=== PATIENT | male | born 1965 | race Asian ===

== ENCOUNTER 2019-01-28 07:02 | Emergency (ER) | payer OTHER | END 2019-01-28 08:16 | disposition home or self-care (01) | LOC: JER 07:02 ==

== ENCOUNTER 2019-05-01 03:41 | Emergency (ER) | payer OTHER ==
--- NOTE | 2019-05-01 03:56 | PDOC ---
History of Present Illness - General Chief Complaint: Pain, Acute Stated Complaint: ABDOMINAL PAIN Time Seen by Provider: 05/01/19 03:55 History Source: Patient Exam Limitations: No Limitations - History of Present Illness Initial Comments: 53 year old male with PMH ETOH abuse presented to ED for acute epigastric pain x2 hours, associated with nausea/vomiting. Pt reported he ate a large psicy chicken meal prior to his symptoms developing. Pt reported his pain is constant , sharp/burning, no aggravating or alleviating factors. Pt reported seeing specks of blood in vomit, but no overwhelming red color, reported yellow vomit. Pt denied diarrhea, fever, chest pain, shortness of breath. Allergies: NKDA ROS General: denied fever, chills, generalized weakness. HEENT: denied sore throat, rhinorrhea, ear pain. Cardiovascular: denied chest pain, palpitations, syncope, diaphoresis. Respiratory: denied shortness of breath, cough, sputum production, hemoptysis. Gastrointestinal: admitted to abdominal pain, nausea, vomiting. denied diarrhea , constipation, blood in stool. Genitourinary: denied dysuria, increased urinary frequency, hematuria, urinary incontinence, flank pain. Back: denied back pain. Musculoskeletal: denied joint pain, muscle pain, joint swelling. Neurological: denied headache, dizziness, numbness, tingling, weakness. Integumentary: denied rash, laceration, abrasion. Hematologic/Lymphatic: denied bruising or bleeding. PE Constitutional: Well-nourished, Well-developed, appearing stated age. actively vomiting. HEENT: head is normocephalic, atraumatic. EOMI. PERRLA. Neck: supple. Full ROM. Cardiovascular: regular heart rhythm. no murmurs. no pericardial friction rub. Respiratory: clear to auscultation bilaterally. no crackles, rhonchi or wheezing. no stridor. Gastrointestinal: soft. epigastric tenderness to palpation. pena negative. mcburney nontender. normal bowel sounds. no rebound, guarding, masses. Extremities: peripheral pulses intact. no lower extremity edema. Neurological: CN 2-12 grossly intact. moves all four extremities. Psych: awake, alert, oriented x3. follows commands. answers questions appropriately. Past History - Past Medical History Allergies/Adverse Reactions: Allergies Allergy/AdvReac Type Severity Reaction Status Date / Time No Known Allergies Allergy Verified 05/01/19 03:54 Home Medications: Ambulatory Orders Cephalexin Monohydrate [Keflex -] 500 mg PO BID #14 capsule 01/28/19 Sulfamethoxazole/Trimethoprim [Bactrim Ds -] 1 tab PO BID #14 tablet 01/28/19 Ranitidine HCl [Zantac 75] 75 mg PO BID #14 tablet 05/01/19 CVA: No COPD: No - Immunization History Immunization Up to Date: No - Suicide/Smoking/Psychosocial Hx Smoking History: Current every day smoker Have you smoked in the past 12 months: Yes Number of Cigarettes Smoked Daily: 20 Hx Alcohol Use: No Drug/Substance Use Hx: No ED Treatment Course - LABORATORY CBC & Chemistry Diagram: 05/01/19 04:14 05/01/19 04:20 Medical Decision Making - Medical Decision Making 53 year old male with above PMH presented to ED for epigastric pain associated with nausea/vomiting x2 hours after ingesting a spicy meal. Initial Vital Signs Temp Pulse Resp BP Pulse Ox 97.9 F 70 18 167/88 100 05/01/19 03:55 05/01/19 03:55 05/01/19 03:55 05/01/19 03:55 05/01/19 03:55 Afebrile. No tachycardia. No tachypnea. Hypertensive. No hypoxia on room air. Labs ordered: CBC, CMP, lipase, alcohol level Imaging ordered: Flat & Upright Abdominal XR Medications ordered: protonix 40 mg IV once, normal saline bolus 1000 cc once, zofran 4 mg IV once 05/01/19 04:51 CBC WBC 8.3 K/mm3 (4.0-10.0) 05/01/19 04:14 RBC 5.08 M/mm3 (4.00-5.60) 05/01/19 04:14 Hgb 15.7 GM/dL (11.7-16.9) 05/01/19 04:14 Hct 47.2 % (35.4-49) 05/01/19 04:14 MCV 92.9 fl (80-96) 05/01/19 04:14 MCH 30.9 pg (25.7-33.7) 05/01/19 04:14 MCHC 33.3 g/dl (32.0-35.9) 05/01/19 04:14 RDW 13.8 % (11.9-15.9) 05/01/19 04:14 Plt Count 186 K/MM3 (134-434) 05/01/19 04:14 MPV 10.3 fl (7.5-11.1) 05/01/19 04:14 Absolute Neuts (auto) 4.3 K/mm3 (1.5-8.0) 05/01/19 04:14 Neutrophils % 52.1 % (42.8-82.8) 05/01/19 04:14 Lymphocytes % 31.1 % (8-40) 05/01/19 04:14 Monocytes % 8.8 % (3.8-10.2) 05/01/19 04:14 Eosinophils % 6.6 % (0-4.5) H 05/01/19 04:14 Basophils % 1.4 % (0-2.0) 05/01/19 04:14 Nucleated RBC % 0 % (0-0) 05/01/19 04:14 No leukocytosis. No anemia. 05/01/19 05:14 CMP Sodium 142 mmol/L (136-145) 05/01/19 04:20 Potassium 4.1 mmol/L (3.5-5.1) 05/01/19 04:20 Chloride 104 mmol/L (98-107) 05/01/19 04:20 Carbon Dioxide 28 mmol/L (21-32) 05/01/19 04:20 Anion Gap 10 MMOL/L (8-16) 05/01/19 04:20 BUN 16.6 mg/dL (7-18) 05/01/19 04:20 Creatinine 0.9 mg/dL (0.55-1.3) 05/01/19 04:20 Est GFR (CKD-EPI)AfAm 112.62 05/01/19 04:20 Est GFR (CKD-EPI)NonAf 97.17 05/01/19 04:20 Random Glucose 93 mg/dL (74-106) 05/01/19 04:20 Calcium 9.2 mg/dL (8.5-10.1) 05/01/19 04:20 Total Bilirubin 0.3 mg/dL (0.2-1) 05/01/19 04:20 AST 34 U/L (15-37) 05/01/19 04:20 ALT 45 U/L (13-61) 05/01/19 04:20 Alkaline Phosphatase 98 U/L (45-117) 05/01/19 04:20 Total Protein 7.2 g/dl (6.4-8.2) 05/01/19 04:20 Albumin 4.1 g/dl (3.4-5.0) 05/01/19 04:20 Lipase 156 U/L (73-393) 05/01/19 04:20 No electrolyte abnormalities. No NAVEED. No transaminitis. Lipase wnl. Pt reassessed, reported improvement of symptoms, requesting discharge. XR showed no free air under diaphragm. -Pending official report Dispo: Discharged. *DC/Admit/Observation/Transfer Diagnosis at time of Disposition: Gastritis, Epigastric pain, Alcohol use - Discharge Dispostion Disposition: HOME Condition at time of disposition: Improved Decision to Admit order: No - Prescriptions Prescriptions: Ranitidine HCl [Zantac 75] 75 mg PO BID #14 tablet - Referrals Referrals: Harpreet Scales MD [Primary Care Provider] - Abdifatah Elizondo DO [Staff Physician] - Brian Haro MD [Staff Physician] - - Patient Instructions Printed Discharge Instructions: DI for Gastritis, DI for Alcohol Abuse, GERD Diet Additional Instructions: Take all prescriptions as prescribed on label. Follow up with your primary care doctor within 3 days. Your care is not complete until you follow up. Bring all paperwork you were given today to your appointment. Bring all medication bottles you are taking. Follow up with a grain grader within 3 days. Your care is not complete until you follow up. Bring all paperwork you were given today to your appointment. Bring all medication bottles you are taking. I have provided you with referrals. Avoid foods that irritate your stomach - caffeine, coffee, tea, spicy, friend, tomatoes, chocolate. I have included information in your discharge paperwork on the GERD diet. Avoid eating 2 hours prior to bed. Please discuss your alcohol intake with your primary care doctor. Return to the Emergency Department for increasing pain, chest pain, shortness of breath, vomiting blood, dark/tarry stools, lightheadedness, blood in stool, or any other new, worsening or concerning symptoms. - Post Discharge Activity Forms/Work/School Notes: Back to Work
[2019-05-01 03:57] VITALS: TEMP 97.9; BMI 26.9
[2019-05-01] MEDS ORDERED: ONDANSETRON 4 MG/2 ML VIAL IVPUSH ONE (04:08)
[2019-05-01] MEDS ORDERED: SODIUM CHLORIDE 1,000 ML IV STA (04:08)
[2019-05-01] MEDS ORDERED: FAMOTIDINE 20 MG/50 ML IVPB 20 MG/50 ML MG IVPB ONE (04:08)
[2019-05-01] MEDS ORDERED: PANTOPRAZOLE SODIUM 40 MG VIAL IVPUSH ONE (04:09)
--- NOTE | 2019-05-01 04:20 | PDOC ---
Attending Attestation - Resident Resident Name: Elena Moeller - ED Attending Attestation I have performed the following: I have examined & evaluated the patient, The case was reviewed & discussed with the resident, I agree w/resident's findings & plan - HPI HPI: 05/01/19 05:56 Pt ate spicy food and had upset stomach. He is an alcohol drinker. - Physicial Exam PE: 05/01/19 05:57 Normal exam. Pt has gassy abd pain and some mild diffuse tenderness. Agree with resident exam. Afebrile. - Medical Decision Making 05/01/19 05:27 Abd flat and upright no sign of obstruction and no free air. Labs normal; alc is negative Pt feels better; he has gastritis and gas 05/01/19 05:57 Follow with PMD/GI specialist
[2019-05-01] MEDS ORDERED: ONDANSETRON 4 MG/2 ML VIAL ONE (04:21)
[2019-05-01] MEDS ORDERED: PANTOPRAZOLE SODIUM 40 MG VIAL ONE (04:21)
[2019-05-01 04:44] LABS: BASO % 1.4 % (0-2.0); EOS % 6.6 % (0-4.5); HEMATOCRIT 47.2 % (35.4-49); HEMOGLOBIN 15.7 GM/dL (11.7-16.9); LYMPH % 31.1 % (8-40); MCH 30.9 pg (25.7-33.7); MCHC 33.3 g/dl (32.0-35.9); MEAN CELL VOLUME 92.9 fl (80-96); MEAN PLT VOLUME 10.3 fl (7.5-11.1); MONO % 8.8 % (3.8-10.2); NEUT % 52.1 % (42.8-82.8); PLATELET COUNT 186 K/MM3 (134-434); RBC 5.08 M/mm3 (4.00-5.60); RDW 13.8 % (11.9-15.9); WHITE BLOOD COUNT 8.3 K/mm3 (4.0-10.0)
[2019-05-01 05:12] LABS: ALBUMIN 4.1 g/dl (3.4-5.0); ALK PHOS 98 U/L (45-117); ANION GAP 10 MMOL/L (8-16); BILIRUBIN,TOTAL 0.3 mg/dL (0.2-1); BLOOD UREA NITROGEN 16.6 mg/dL (7-18); CALCIUM 9.2 mg/dL (8.5-10.1); CHLORIDE 104 mmol/L (98-107); CO2 28 mmol/L (21-32); CREATININE 0.9 mg/dL (0.55-1.3); GLUCOSE,RANDOM 93 mg/dL (74-106); LIPASE 156 U/L (73-393); POTASSIUM 4.1 mmol/L (3.5-5.1); SGOT/AST 34 U/L (15-37); SGPT/ALT 45 U/L (13-61); SODIUM 142 mmol/L (136-145); TOT PROT 7.2 g/dl (6.4-8.2)
[2019-05-01 05:24] VITALS: BP 128/64; PULSE 62
== END 2019-05-01 05:35 | disposition home or self-care (01) ==
LOC: JER 03:41
PROC: 3E033GC Introduction of Other Therapeutic Substance into Peripheral Vein, Percutaneous Approach (ICD-10-PCS; principal; 2019-05-01)
PROC: 3E033GC Introduction of Other Therapeutic Substance into Peripheral Vein, Percutaneous Approach (ICD-10-PCS; 2019-05-01)
PROC: 3E033GC Introduction of Other Therapeutic Substance into Peripheral Vein, Percutaneous Approach (ICD-10-PCS; 2019-05-01)
DX: K29.70 Gastritis, unspecified, without bleeding (principal); F10.10 Alcohol abuse, uncomplicated
CPT/HCPCS: 36415; 74019-TC-FY; 80053; 80307; 83690; 85025; 96365; 96375; 99283-25; J7030

== ENCOUNTER 2019-05-11 05:08 | Emergency (ER) | payer OTHER ==
--- NOTE | 2019-05-11 05:31 | PDOC ---
Attending Attestation - Resident Resident Name: RicardoMichaelSourav - ED Attending Attestation I have performed the following: I have examined & evaluated the patient, The case was reviewed & discussed with the resident, I agree w/resident's findings & plan - HPI HPI: 05/11/19 06:18 see resident hpi - Physicial Exam PE: 05/11/19 06:18 agree with resident exam - Medical Decision Making 05/11/19 06:19 53 yo male with upper abdominal pain for several days see on the here and d/c plan for CT abd /pelvis to r/o pancreatitis RUQ US to follow if indicated signed out to day shift
[2019-05-11 05:37] VITALS: BMI 27.0
--- NOTE | 2019-05-11 05:43 | PDOC ---
History of Present Illness - General Chief Complaint: Pain, Acute Stated Complaint: ABD PAIN Time Seen by Provider: 05/11/19 05:19 History Source: Patient Exam Limitations: No Limitations - History of Present Illness Initial Comments: 05/11/19 05:38 Source: Patient HPI: 53 year old male with PMH ETOH abuse presented to ED for acute epigastric pain overnight, associated with nausea/vomiting. Pt presented for same complaint on 05/01/19 (Rx for Zantac, not filled) and to his PCP yesterday afternoon at 3PM (given Pantoprazole and Ibuprofen 800mg). Pt reported his pain is constant, burning, located in the upper abdomen / epigastrium with no aggravating or alleviating factors and generally goes away on its own after a couple hours but has kept him awake tonight. He endorses the sensation of a "hard stomach" and taps his belly throughout the exam. Pt denies seeing blood or bile in vomit. Pt denied diarrhea, constipation, fever, chills, chest pain, shortness of breath. Endorses nausea and 5/10 pain at the current time - requests a pain pill. Denies any ETOH for the past "two to three weeks." Reports that the ED and PCP have both told him their tests have been negative. All: KNDA Meds: denies (has RX for ibuprofen and pantoprazole) PMH: denies PSH: denies Past History - Travel Traveled outside of the country in the last 30 days: No Close contact w/someone who was outside of country & ill: No - Past Medical History Allergies/Adverse Reactions: Allergies Allergy/AdvReac Type Severity Reaction Status Date / Time No Known Allergies Allergy Verified 05/01/19 03:54 Home Medications: Ambulatory Orders Cephalexin Monohydrate [Keflex -] 500 mg PO BID #14 capsule 01/28/19 Sulfamethoxazole/Trimethoprim [Bactrim Ds -] 1 tab PO BID #14 tablet 01/28/19 Ranitidine HCl [Zantac 75] 75 mg PO BID #14 tablet 05/01/19 CVA: No COPD: No - Immunization History Immunization Up to Date: No - Suicide/Smoking/Psychosocial Hx Smoking History: Current every day smoker Have you smoked in the past 12 months: Yes Number of Cigarettes Smoked Daily: 20 Information on smoking cessation initiated: Yes Hx Alcohol Use: No Drug/Substance Use Hx: No Review of Systems - Review of Systems Able to Perform ROS?: Yes Is the patient limited Bengali proficient: Yes Constitutional: No: Chills, Diaphoresis, Fever, Weakness HEENTM: No: Recent change in vision, Nose Congestion, Throat Pain, Throat Swelling, Difficulty Swallowing Respiratory: No: Cough, Orthopnea, Shortness of Breath, Wheezing Cardiac (ROS): No: Chest Pain, Edema, Irregular Heart Rate, Palpitations, Syncope, Chest Tightness ABD/GI: Yes: See HPI, Nausea, Vomiting, Indigestion. No: Abd. Pain w/ defecation, Blood Streaked Bowels, Constipated, Diarrhea, Difficulty Swallowing , Poor Appetite, Rectal Bleeding, Tarry Stools : No: Burning, Dysuria, Discharge Musculoskeletal: No: Back Pain, Muscle Pain, Muscle Weakness Integumentary: No: Bruising, Dryness, Pruritus, Rash Neurological: No: Headache, Numbness, Tingling, Weakness Psychiatric: No: Stressors, Emotional Problems, Mood Swings, Change in Appetite Endocrine: No: Excessive Sweating, Intolerance to Heat, Increased Hunger, Change in Weight Hematologic/Lymphatic: No: Anemia, Blood Clots, Easy Bleeding, Easy Bruising All Other Systems: Reviewed and Negative *Physical Exam - Vital Signs Last Vital Signs Temp Pulse Resp BP Pulse Ox 97.6 F 60 18 178/98 H 100 05/11/19 05:24 05/11/19 05:24 05/11/19 05:24 05/11/19 05:24 05/11/19 05:24 - Physical Exam Comments: 05/11/19 06:05 Vitals reviewed, pt hypertensive, vitals otherwise stable GEN: WDWN man, appears stated age, laying in bed HEENT: NCAT, MMM, EOMI, normal morphologies CV: RRR, nl s1/s2, no murmurs appreciated Pulm: CTABL, normal WOB, no wheezes / rales / rhonchi Abd: Soft, distended, nontender to palpation Pulses: 2+ radial and PT Neuro: alert, CN grossly intact, MAEE Ext: WWP, no clubbing / cyanosis / edema ED Treatment Course - LABORATORY CBC & Chemistry Diagram: 05/11/19 05:55 05/11/19 05:55 Medical Decision Making - Medical Decision Making 05/11/19 05:56 53 year old male with PMH ETOH abuse presented to ED for acute epigastric pain overnight, associated with nausea/vomiting. History notable for 10 days of pain with nothing prior. Resolution with GI cocktail last visit. Recent PCP visit ( 12 hours ago) with PPI Rx. DDX: GERD, Gastritis, Pancreatitis, not-to-miss mesenteric ischemia r/o ACS. -CBC, CMP, CP, Lipase, Lactate -EKG -IVF -CTAP with IV pending Cr -Prptonix, Zofran 05/11/19 06:45 -Patient reports feeling better after GI cocktail and IVF 05/11/19 06:57 -Labs pending -Patient endorsed to day team, Dr. Gill *DC/Admit/Observation/Transfer Diagnosis at time of Disposition: Epigastric pain - Discharge Dispostion Disposition: HOME Condition at time of disposition: Improved Decision to Admit order: No - Referrals Referrals: Maura Albrecht MD [Primary Care Provider] - - Patient Instructions - Post Discharge Activity
[2019-05-11] MEDS ORDERED: SODIUM CHLORIDE 0.9% 500 ML INFUS.BAG IV ONE (05:44)
[2019-05-11] MEDS ORDERED: PANTOPRAZOLE SODIUM 40 MG VIAL IVPUSH ONE (05:45)
[2019-05-11] MEDS ORDERED: ONDANSETRON 4 MG/2 ML VIAL IVPB ONE (05:45)
[2019-05-11] MEDS ORDERED: PANTOPRAZOLE SODIUM 40 MG/100 ML BAG IVPB ONE (05:59)
[2019-05-11] MEDS ORDERED: ONDANSETRON 4 MG/2 ML VIAL ONE (05:59)
[2019-05-11 06:59] LABS: BASO % 0.9 % (0-2.0); EOS % 4.9 % (0-4.5); HEMATOCRIT 43.1 % (35.4-49); HEMOGLOBIN 14.3 GM/dL (11.7-16.9); MCH 30.7 pg (25.7-33.7); MCHC 33.1 g/dl (32.0-35.9); MEAN CELL VOLUME 92.9 fl (80-96); MEAN PLT VOLUME 10.9 fl (7.5-11.1); MONO % 9.6 % (3.8-10.2); NEUT % 63.6 % (42.8-82.8); PLATELET COUNT 159 K/MM3 (134-434); RBC 4.64 M/mm3 (4.00-5.60); RDW 13.4 % (11.9-15.9); WHITE BLOOD COUNT 7.2 K/mm3 (4.0-10.0)
--- NOTE | 2019-05-11 07:24 | PDOC ---
*Physical Exam - Vital Signs Last Vital Signs Temp Pulse Resp BP Pulse Ox 97.6 F 60 18 178/98 H 100 05/11/19 05:24 05/11/19 05:24 05/11/19 05:24 05/11/19 05:24 05/11/19 05:24 ED Treatment Course - LABORATORY CBC & Chemistry Diagram: 05/11/19 05:55 05/11/19 05:55 - ADDITIONAL ORDERS Additional order review: Laboratory Results 05/11/19 05:55 Lipase 110 05/11/19 05:55 RBC 4.64 MCV 92.9 MCHC 33.1 RDW 13.4 MPV 10.9 Neutrophils % 63.6 D Lymphocytes % 21.0 D Monocytes % 9.6 Eosinophils % 4.9 H Basophils % 0.9 - Medications Given in the ED: ED Medications Discontinued Medications Generic Name Dose Route Start Last Admin Trade Name Freq PRN Reason Stop Dose Admin Ondansetron HCl 4 mg 05/11/19 05:45 05/11/19 06:00 Zofran Injection IVPB 05/11/19 05:46 4 mg ONCE ONE Administration Pantoprazole Sodium 40 mg 05/11/19 05:45 05/11/19 06:06 Protonix Iv IVPUSH 05/11/19 05:46 40 mg ONCE ONE Administration Sodium Chloride 1,000 ml 05/11/19 05:44 05/11/19 06:06 Normal Saline - IV 05/11/19 05:45 1,000 ml ONCE ONE Administration Medical Decision Making - Medical Decision Making Pt signed out by night team (Dr. Silva). Pt with multiple visits for upper abdominal pain, but has not followed with GI or filled his prescriptions. Pt does drink alcohol. Ordered RUQ US and CT abd/pelvis with IV contrast. Labs WNL. Pt states feeling better after GI cocktail. Pt taken for US and CT. 05/11/19 08:00 US: Borderline hepatomegaly with fatty infiltration versus hepatocellular disease. Please correlate with liver enzymes. Tiny gallstones with evidence of adenomyomatosis. Thickening of the gallbladder wall likely related to adenomyomatosis without evidence of pericholecystic free fluid. Nonvisualization of the pancreas likely due to overlying bowel gas. Small right renal simple cyst measuring 1.5 cm. 05/11/19 08:[address], pending read 05/11/19 08:46 [id number] CT/ABDOMEN & PELVIS CT WITH CONTR HISTORY PROVIDED: Upper abdominal pain. Sequential axial images were obtained from the domes of the diaphragms through the symphysis pubis following the administration of intravenous contrast material. The lung bases are clear. The gallbladder is slightly distended and thick walled with a trace amount of pericholecystic fluid. Calculi are identified within the gallbladder lumen. This appearance is suspicious for acute cholecystitis. Clinical correlation and follow-up HIDA scan recommended. The liver, spleen, pancreas, adrenal glands and kidneys demonstrate no significant abnormalities. There is a 2.1 cm cyst within the medial portion of the right kidney. There is no evidence of intra-abdominal or retroperitoneal lymphadenopathy or fluid collections. There is no evidence of pneumoperitoneum, bowel obstruction or intra-abdominal abscess. There is no CT evidence of acute appendicitis or diverticulitis. Examination of the pelvis demonstrates no evidence of pelvic masses, fluid collections or lymphadenopathy. There is no evidence of acute bony pathology. IMPRESSION: 1. Findings suspicious for acute cholecystitis. Clinical correlation and follow- up recommended. 2. No evidence of pancreatitis. Please see above discussion. 05/11/19 08:54 Pts abdomen nontender. Pt still complaining of upper abdomen pain, but did say it improved after zofran and protonix IV. Providing PO cocktail (maalox, viscous lidocaine) and IV pepcid 05/11/19 09:13 *DC/Admit/Observation/Transfer Diagnosis at time of Disposition: Epigastric pain - Discharge Dispostion Disposition: HOME Condition at time of disposition: Improved Decision to Admit order: No - Referrals Referrals: Maura Albrecht MD [Primary Care Provider] - Brian Haro MD [Staff Physician] - - Patient Instructions Printed Discharge Instructions: DI for Gastritis Additional Instructions: You were seen in the ER today for upper abdominal pain. The results of your labs and imaging today showed possible polyps in your gallbladder and some changes in your liver, which you should follow-up with your primary doctor. Your labwork today was normal. Please follow-up with your primary care doctor and GI (Dr. Haro) within 1-2 days to discuss your visit and make sure your symptoms have improved. Please return to the ER if you have any worsening pain, development of fevers or chills, loss of consciousness, inability to tolerate food or fluids, or any other concerns. Please take your medications as prescribed by your regular doctor, except please stop taking the ibuprofen as we discussed. The ibuprofen can irritate the lining of your stomach. You should take your protonix and zantac at home as prescribed. Take these medications 30 minutes before your meal to help with acid reduction. - Post Discharge Activity
[2019-05-11 07:29] LABS: ALBUMIN 3.5 g/dl (3.4-5.0); ALK PHOS 79 U/L (45-117); ANION GAP 6 MMOL/L (8-16); BILIRUBIN,TOTAL 0.3 mg/dL (0.2-1); BLOOD UREA NITROGEN 10.6 mg/dL (7-18); CALCIUM 8.6 mg/dL (8.5-10.1); CHLORIDE 105 mmol/L (98-107); CO2 28 mmol/L (21-32); CREATININE 0.8 mg/dL (0.55-1.3); GLUCOSE,RANDOM 96 mg/dL (74-106); POTASSIUM 4.2 mmol/L (3.5-5.1); SGOT/AST 26 U/L (15-37); SGPT/ALT 33 U/L (13-61); SODIUM 139 mmol/L (136-145); TOT PROT 6.3 g/dl (6.4-8.2)
[2019-05-11] MEDS ORDERED: FAMOTIDINE 20 MG/50 ML IVPB 20 MG/50 ML MG IVPB ONE ×2 (09:08→09:25)
[2019-05-11] MEDS ORDERED: LIDOCAINE VISCOUS 2% ORAL/TOP 20 ML UNIT-DOSE CUP MM ONE (09:08)
[2019-05-11] MEDS ORDERED: MAG HYDROX/AL HYDROX/SIMETH 30 ML UNIT-DOSE CUP PO ONE (09:08)
[2019-05-11] MEDS ORDERED: MAG HYDROX/AL HYDROX/SIMETH 30 ML UNIT-DOSE CUP ONE (09:25)
[2019-05-11] MEDS ORDERED: LIDOCAINE VISCOUS 2% ORAL/TOP 20 ML UNIT-DOSE CUP ONE (09:25)
[2019-05-11 09:41] VITALS: BP 133/74; PULSE 65; TEMP 97.5
--- NOTE | 2019-05-11 14:04 | EKG ---
Test Reason : Blood Pressure : / mmHG Vent. Rate : 053 BPM Atrial Rate : 053 BPM P-R Int : 144 ms QRS Dur : 086 ms QT Int : 432 ms P-R-T Axes : 032 060 043 degrees QTc Int : 405 ms SINUS BRADYCARDIA OTHERWISE NORMAL ECG NO PREVIOUS ECGS AVAILABLE Confirmed by MANASA GONZALES MD ([id number]) on 05/11/2019 2:04:18 PM Referred By: Confirmed By:MANASA GONZALES MD
== END 2019-05-11 10:32 | disposition home or self-care (01) ==
LOC: JER 05:08
DX: R10.13 Epigastric pain (principal); F17.210 Nicotine dependence, cigarettes, uncomplicated
CPT/HCPCS: 36415; 74177-TC; 76705-TC; 80053; 83605; 83690; 84484; 85025; 93005; 93010; 99283-25

== ENCOUNTER 2019-07-26 19:19 | Inpatient (IN) | payer OTHER ==
[2019-07-26 20:08] VITALS: BMI 27.3
[2019-07-26] MEDS ORDERED: ONDANSETRON 4 MG/2 ML VIAL IVPUSH ONE (20:09)
[2019-07-26] MEDS ORDERED: PANTOPRAZOLE SODIUM 40 MG VIAL IVPUSH ONE (20:09)
[2019-07-26] MEDS ORDERED: SODIUM CHLORIDE 1,000 ML IV STA (20:09)
--- NOTE | 2019-07-26 20:09 | PDOC ---
Rapid Medical Evaluation Time Seen by Provider: 07/26/19 20:06 Medical Evaluation: Allergies Allergy/AdvReac Type Severity Reaction Status Date / Time No Known Allergies Allergy Verified 05/11/19 10:27 07/26/19 20:06 Patient c/o: upper abd pain with n/v, hx etoh abuse and gallstones Patient on brief exam: vss, ruq/luq and epigastric abd tenderness Patient ordered for: cbc, comp, lipase, ua, iv, ivf, zofran, protonix Patient to proceed to the ED Discharge Disposition - Diagnosis Acute cholecystitis - Discharge Dispostion Condition at time of disposition: Fair - Referrals - Patient Instructions - Post Discharge Activity
--- NOTE | 2019-07-26 21:13 | PDOC ---
*Physical Exam - Vital Signs Last Vital Signs Temp Pulse Resp BP Pulse Ox 98.5 F 53 L 19 187/97 H 99 07/26/19 20:02 07/26/19 20:02 07/26/19 20:02 07/26/19 20:02 07/26/19 20:02 ED Treatment Course - LABORATORY CBC & Chemistry Diagram: 07/26/19 21:13 07/26/19 21:13 Medical Decision Making - Medical Decision Making 07/26/19 21:13 Patient seen by the advanced practice provider under my direct supervision. Ancillary testing reviewed as necessary. I agree with plan as outlined by the advanced practice provider. Discharge - Discharge Information Problems reviewed: Yes Clinical Impression/Diagnosis: Acute cholecystitis Condition: Fair - Follow up/Referral - Patient Discharge Instructions - Post Discharge Activity
[2019-07-26] MEDS ORDERED: VANCOMYCIN 1 GRAM (PRE-DOCKED) 0 MG/0 ML BAG IVPB ONE (21:16)
[2019-07-26] MEDS ORDERED: PANTOPRAZOLE SODIUM 40 MG VIAL ONE (21:17)
[2019-07-26] MEDS ORDERED: ONDANSETRON 4 MG/2 ML VIAL ONE (21:17)
--- NOTE | 2019-07-26 21:19 | PDOC ---
History of Present Illness - General Chief Complaint: Pain, Acute Stated Complaint: NAUSEA/ABD/PAIN/VOMITTING Time Seen by Provider: 07/26/19 20:06 History Source: Patient Exam Limitations: No Limitations - History of Present Illness Travel History: No Initial Comments: 07/26/19 21:18 HISTORY OF PRESENT ILLNESS: 53-year-old male past medical history of alcohol abuse and gallbladder polyps who presents to the emergency department for evaluation of right upper quadrant pain starting approximately 3 hours ago. Patient was seen and evaluated in April for similar symptoms was found to have gallstones on ultrasound with gallbladder polyps. Patient reports symptoms resolved then but never followed up with surgery or GI after he left the emergency department. Patient reports the pain returned now and is unable to identify any aggravating or alleviating factors. Patient reports the pain is a sharp sensation rated 10/10 accompanied with nausea and vomiting. Patient reports vomiting was initially undigested food and now has bile. He denies any blood in the vomit. No recent travel or sick contacts. PAST MEDICAL HISTORY: See HPI SURGICAL HISTORY: Denies ALLERGIES: No known drug allergies REVIEW OF SYSTEMS General/Constitutional: Denies fever or chills. Denies weakness, weight change. HEENT: Denies change in vision. Denies ear pain or discharge. Denies sore throat. Cardiovascular: Denies chest pain or shortness of breath. Respiratory: Denies cough, wheezing, or hemoptysis. Gastrointestinal: See HPI Genitourinary: Denies dysuria, frequency, or change in urination. Musculoskeletal: Denies joint or muscle swelling or pain. Denies neck or back pain. Skin and breasts: Denies rash or easy bruising. Neurologic: Denies headache, vertigo, loss of consciousness, or loss of sensation. Psychiatric: Denies depression or anxiety. Endocrine: Denies increased thirst. Denies abnormal weight change. Hematologic/Lymphatic: Denies anemia, easy bleeding, or history of blood clots. Allergic/Immunologic: Denies hives or skin allergy. Denies latex allergy. PHYSICAL EXAM General Appearance: Well-appearing, appropriately dressed. No apparent distress , no intoxication. Respiratory/Chest: Lungs CTAB. No shortness of breath, chest tenderness, respiratory distress, accessory muscle use. No crackles, rales, rhonchi, stridor , wheezing, dullness Cardiovascular: RRR. S1, S2. No JVD, murmur, bradycardia, tachycardia. Vascular Pulses: Dorsalis-Pedis (R): 2+, Dorsalis-Pedis (L): 2+ Gastrointestinal/Abdominal: Normal bowel sounds. Abdomen soft, non-distended. Right upper quadrant tenderness with guarding. No Amaral sign or rebound tenderness. No organomegaly, pulsatile mass, hernia, hepatomegaly, splenomegaly. Lymphatic: No adenopathy, tenderness. 07/26/19 21:20 Past History - Past Medical History Allergies/Adverse Reactions: Allergies Allergy/AdvReac Type Severity Reaction Status Date / Time No Known Allergies Allergy Verified 05/11/19 10:27 Home Medications: Ambulatory Orders NK [No Known Home Medication] 07/27/19 CVA: No COPD: No GI Disorders: Yes (Gastritis, cholycystitis) Other medical history: Gallbladdes polyps - Immunization History Immunization Up to Date: No - Psycho Social/Smoking Cessation Hx Smoking History: Current every day smoker Have you smoked in the past 12 months: Yes Number of Cigarettes Smoked Daily: 20 Information on smoking cessation initiated: No Hx Alcohol Use: Yes Drug/Substance Use Hx: No *Physical Exam - Vital Signs Last Vital Signs Temp Pulse Resp BP Pulse Ox 98.5 F 53 L 19 187/97 H 99 07/26/19 20:02 07/26/19 20:02 07/26/19 20:02 07/26/19 20:02 07/26/19 20:02 ED Treatment Course - LABORATORY CBC & Chemistry Diagram: 07/27/19 06:10 07/27/19 06:10 - RADIOLOGY Radiology Studies Ordered: Category Date Time Status GALLBLADDER US [US] Stat Ultrasound 07/26/19 21:14 Ordered - Medications Given in the ED: ED Medications Discontinued Medications Generic Name Dose Route Start Last Admin Trade Name Freq PRN Reason Stop Dose Admin Sodium Chloride 1,000 mls @ 1,000 mls/hr 07/26/19 20:09 07/26/19 21:13 Normal Saline - IV 07/26/19 21:08 1,000 mls/hr ASDIR STA Administration Medical Decision Making - Medical Decision Making 07/26/19 21:23 A/P: 53-year-old male with right upper quadrant pain for the past 3 hours [place] by nausea and vomiting Right upper quadrant tenderness (+) Case has been discussed with the hospitalist service who accepts patient for inpatient admission to [facility]. I will contact Dr. Venegas and let him know of pending consult. Amaral sign or rebound tenderness present Negative psoas and obturator signs Remainder of abdominal exam is unremarkable Labs per RME Normal saline 1 L IV bolus Morphine 4 mg IV push Gallbladder ultrasound Reassess 07/26/19 21:24 07/26/19 22:58 Laboratory Tests 07/26/19 07/26/19 07/26/19 21:13 21:13 21:13 WBC 12.0 H Hgb 14.9 Hct 44.2 Plt Count 198 D Absolute Neuts (auto) 10.2 H Neutrophils % 85.0 H D Lymphocytes % 9.3 D Monocytes % 3.9 Eosinophils % 1.2 Basophils % 0.6 Sodium 140 Potassium 4.6 Chloride 106 Carbon Dioxide 28 BUN 11.9 Creatinine 1.0 Est GFR (CKD-EPI)AfAm 99.15 Est GFR (CKD-EPI)NonAf 85.55 Random Glucose 115 H Calcium 9.1 Magnesium 2.4 Total Bilirubin 0.1 L AST 31 ALT 49 Alkaline Phosphatase 93 Total Protein 7.3 Albumin 4.1 Lipase 100 Ultrasound is read by Dr. Miller: Gallbladder sludge with questionable stones. Mild thickening of the gallbladder wall with ingestion of the adenomyomatosis and trace pericholecystic free fluid. Findings are suspicious for acute cholecystitis. Further evaluation is needed. Fatty liver versus hepatocellular disease. Please correlate with liver enzymes. Small right renal simple cyst measuring 1.5 cm Very limited/nondiagnostic visualization of the pancreatic head and body Given ultrasound findings I will admit patient for surgical consult in the morning. Type and screen Blood cultures EKG Chest x-ray Ceftriaxone 1 g IV 07/26/19 23:39 EKG sinus rhythm with rate of 61. Normal intervals with a QTC 414 ms. Normal axis. No ischemic changes present. Case has been discussed with the hospitalist service who accepts patient for inpatient [facility] admission under Dr. Albrecht. Surgical consult placed with Dr. Venegas and text message was sent to make him aware to evaluate in the morning. 07/27/19 00:38 Discharge - Discharge Information Problems reviewed: Yes Clinical Impression/Diagnosis: Acute cholecystitis Condition: Fair - Admission Yes - Follow up/Referral - Patient Discharge Instructions - Post Discharge Activity
[2019-07-26] MEDS ORDERED: morphine CARPU-JECT 4 MG/1 ML DISP.SYRIN IVPUSH ONE (21:24)
[2019-07-26 21:28] LABS: BASO % 0.6 % (0-2.0); EOS % 1.2 % (0-4.5); HEMATOCRIT 44.2 % (35.4-49); HEMOGLOBIN 14.9 GM/dL (11.7-16.9); LYMPH % 9.3 % (8-40); MCH 30.9 pg (25.7-33.7); MCHC 33.7 g/dl (32.0-35.9); MEAN CELL VOLUME 91.6 fl (80-96); MEAN PLT VOLUME 10.5 fl (7.5-11.1); MONO % 3.9 % (3.8-10.2); PLATELET COUNT 198 K/MM3 (134-434); RBC 4.83 M/mm3 (4.00-5.60); RDW 13.7 % (11.9-15.9)
[2019-07-26] MEDS ORDERED: morphine SULFATE 4 MG/ML VIAL ONE (21:33)
[2019-07-26 22:02] LABS: ALBUMIN 4.1 g/dl (3.4-5.0); BILIRUBIN,TOTAL 0.1 mg/dL (0.2-1); BLOOD UREA NITROGEN 11.9 mg/dL (7-18); CALCIUM 9.1 mg/dL (8.5-10.1); MAGNESIUM 2.4 mg/dL (1.8-2.4); POTASSIUM 4.6 mmol/L (3.5-5.1); TOT PROT 7.3 g/dl (6.4-8.2)
[2019-07-26] MEDS ORDERED: CEFTRIAXONE 1,000 MG in DEXTROSE 5%-WATER - 50 ML IVPB ONE (23:05)
[2019-07-26 23:44] LABS: URINE APPEARANCE CLEAR; URINE BILIRUBIN NEGATIVE (NEGATIVE); URINE COLOR DK YELLOW; URINE GLUCOSE (UA) NEGATIVE (NEGATIVE); URINE KETONE TRACE (NEGATIVE); URINE LEUK ESTERASE NEGATIVE (NEGATIVE); URINE NITRITE NEGATIVE (NEGATIVE); URINE PROTEIN TRACE (NEGATIVE)
[2019-07-26] MEDS ORDERED: CEFTRIAXONE 1 GM/50 ML BAG ONE (23:50)
--- NOTE | 2019-07-27 00:44 | HP ---
Admitting History and Physical - Primary Care Physician PCP: Dr. Albrecht - Admission Chief Complaint: upper abd pain, N/V History of Present Illness: 53-year-old male with PMHx of alcohol abuse and gallbladder polyps arrived to ED for right upper quadrant pain starting approximately 3 hours ago. Patient was seen and evaluated in April for similar symptoms was found to have gallstones on ultrasound with gallbladder polyps. Patient reports symptoms resolved then but never followed up with surgery or GI. Patient reports the pain returned now and is unable to identify any aggravating or alleviating factors. Patient reports the pain is a sharp sensation rated 10/10 accompanied with nausea and vomiting. Patient reports vomiting was initially undigested food and now has bile. Patient denies any blood in the vomit. No fever, chills, CP/SOB, constipation, diarrhea noted. History Source: Patient, Family Member Limitations to Obtaining History: No Limitations - Past Medical History Gastrointestinal: Yes: Gastritis Psych: Yes: Addictions (alcohol) - Past Surgical History Past Surgical History: Yes: None - Smoking History Smoking history: Current every day smoker Have you smoked in the past 12 months: Yes Aproximately how many cigarettes per day: 20 - Alcohol/Substance Use Hx Alcohol Use: Yes History of Substance Use: reports: None - Social History Usual Living Arrangement: Yes: With Significant Other ADL: Independent History of Recent Travel: No Home Medications - Allergies Allergies/Adverse Reactions: Allergies Allergy/AdvReac Type Severity Reaction Status Date / Time No Known Allergies Allergy Verified 05/11/19 10:27 - Home Medications Home Medications: Ambulatory Orders Cephalexin Monohydrate [Keflex -] 500 mg PO BID #14 capsule 01/28/19 Sulfamethoxazole/Trimethoprim [Bactrim Ds -] 1 tab PO BID #14 tablet 01/28/19 Ranitidine HCl [Zantac 75] 75 mg PO BID #14 tablet 05/01/19 Cephalexin [Keflex] 500 mg PO BID #14 capsule 05/12/19 Sulfamethoxazole/Trimethoprim [Bactrim Ds -] 1 tab PO BID #14 tablet 05/12/19 Family Medical History Family History: Denies Review of Systems - Review of Systems Constitutional: reports: No Symptoms Eyes: reports: No Symptoms HENT: reports: No Symptoms Neck: reports: No Symptoms Cardiovascular: reports: No Symptoms Respiratory: reports: No Symptoms Gastrointestinal: reports: Abdominal Pain, Nausea, Vomiting Genitourinary: reports: No Symptoms Physical Examination Vital Signs: Vital Signs Temperature 98.5 F 07/26/19 20:02 Pulse Rate 62 07/26/19 21:41 Respiratory Rate 18 07/26/19 21:41 Blood Pressure 183/93 H 07/26/19 21:41 O2 Sat by Pulse Oximetry (%) 100 07/26/19 21:41 Constitutional: Yes: No Distress, Calm Eyes: Yes: Conjunctiva Clear, EOM Intact HENT: Yes: Atraumatic, Normocephalic Neck: Yes: Supple, Trachea Midline Cardiovascular: Yes: Regular Rate and Rhythm Respiratory: Yes: Regular, CTA Bilaterally Gastrointestinal: Yes: Normal Bowel Sounds, Soft, Tenderness, Other (RUQ tender with guarding) Musculoskeletal: Yes: WNL Extremities: Yes: WNL Edema: No Peripheral Pulses WNL: Yes Integumentary: Yes: WNL Neurological: Yes: Alert, Oriented Labs: CBC, BMP 07/26/19 21:13 07/26/19 21:13 Imaging - Results Chest X-ray: Report Reviewed (no acute infiltrate noted) Ultrasound: Report Reviewed (Ultrasound ABD: Gallbladder sludge with questionable stones. Mild thickening of the gallbladder wall with ingestion of the adenomyomatosis and trace pericholecystic free fluid. Findings are suspicious for acute cholecystitis.) EKG: Report Reviewed (EKG sinus rhythm with rate of 61. Normal intervals with a QTC 414 ms. Normal axis. No ischemic changes present.) Problem List - Problems (1) Acute cholecystitis Code(s): K81.0 - ACUTE CHOLECYSTITIS (2) History of ETOH abuse Code(s): F10.11 - ALCOHOL ABUSE, IN REMISSION (3) Gastritis Code(s): K29.70 - GASTRITIS, UNSPECIFIED, WITHOUT BLEEDING Assessment/Plan 53-year-old male with PMHx of Gastritis, alcohol abuse and gallbladder polyps arrived to ED for right upper quadrant pain starting approximately 3 hours ago. Patient reports the pain returned now and is unable to identify any aggravating or alleviating factors. Patient reports the pain is a sharp sensation rated 10/ 10 accompanied with nausea and vomiting. #Acute Cholecystitis Ultrasound ABD: Gallbladder sludge with questionable stones. Mild thickening of the gallbladder wall with ingestion of the adenomyomatosis and trace pericholecystic free fluid. Findings are suspicious for acute cholecystitis. EKG sinus rhythm with rate of 61. Normal intervals with a QTC 414 ms. Normal axis. No ischemic changes present. Chest x-ray: no acute infiltrate UA: negative WBC: 12.0 AST, ALT : wnl In ED: given Ceftriaxone 1 g IV x1, Benadryl 25 mg, Zofran and PPI, IVF 1L Follow up blood culture - continue with IV fluids - continue with zofran 4mg Q 8 prn - continue with pain management - NPO - Follow up Surgery, ID consult in AM #Gastritis - Continue with Zantac BID FEN: NPO, Continue with IV fluids VTE: Heparin SQ Dispo: Inpatient Med-Surg Visit type - Emergency Visit Emergency Visit: Yes ED Registration Date: 07/26/19 Care time: The patient presented to the Emergency Department on the above date and was hospitalized for further evaluation of their emergent condition. - New Patient This patient is new to me today: Yes Date on this admission: 07/27/19 - Critical Care Critical Care patient: No
[2019-07-27] MEDS ORDERED: ONDANSETRON 4 MG/2 ML VIAL IVPUSH PRN ×2 (00:59→14:16)
[2019-07-27] MEDS ORDERED: SODIUM CHLORIDE 1,000 ML IV SCH ×2 (01:00→14:16)
[2019-07-27] MEDS ORDERED: MORPHINE SULFATE 2 MG/ML VIAL SQ PRN ×2 (01:00→14:16)
[2019-07-27 07:11] LABS: HEMATOCRIT 40.8 % (35.4-49); HEMOGLOBIN 13.7 GM/dL (11.7-16.9); MCH 30.6 pg (25.7-33.7); MCHC 33.6 g/dl (32.0-35.9); MEAN PLT VOLUME 10.2 fl (7.5-11.1); PLATELET COUNT 174 K/MM3 (134-434); RBC 4.48 M/mm3 (4.00-5.60); RDW 13.3 % (11.9-15.9); WHITE BLOOD COUNT 7.7 K/mm3 (4.0-10.0)
[2019-07-27 07:29] LABS: CALCIUM 9.1 mg/dL (8.5-10.1); CREATININE 0.8 mg/dL (0.55-1.3); POTASSIUM 4.4 mmol/L (3.5-5.1)
--- NOTE | 2019-07-27 08:04 | CONSULT ---
- Consultation REQUESTING PROVIDER: CONSULT REQUEST: We have been asked to surgically evaluate this patient for billiary sludge/cholecystitis PCP:Maura Albrecht - History of Present Illness 53-year-old male past medical history of alcohol abuse and gallbladder polyps who presents to the emergency department for evaluation of right upper quadrant pain starting approximately 3 hours ago. Patient was seen and evaluated on two separate visits April for similar symptoms was found to have gallstones on ultrasound with gallbladder polyps. Patient reports symptoms resolved with IV fluids and was discharged at his request but never followed up with surgery or GI after he left the emergency department. Patient reports the pain returned now and is unable to identify any aggravating or alleviating factors. Patient reports the pain is a sharp sensation rated 10/10 accompanied with nausea and vomiting x3. Patient reports vomiting was initially undigested food and now has bile. He denies any blood in the vomit. He denies any fever, chill, SOB, or CP associated with the onset of symptoms. CVA: No COPD: No GI Disorders: Yes (Gastritis, cholycystitis) Other medical history: Gallbladdes polyps - Immunization History Immunization Up to Date: No - Psycho Social/Smoking Cessation Hx Smoking History: Current every day smoker x 30 years Have you smoked in the past 12 months: Yes Number of Cigarettes Smoked Daily: 1 pack Information on smoking cessation initiated: No Hx Alcohol Use: Yes, moderate with hx of ETOH abuse Drug/Substance Use Hx: No No recent travel or sick contacts. PAST MEDICAL HISTORY: See HPI SURGICAL HISTORY: ET tubes Allergies Allergy/AdvReac Type Severity Reaction Status Date / Time No Known Allergies Allergy Verified 05/11/19 10:27 Home Medications Medication Instructions Recorded NK [No Known Home Medication] 07/27/19 REVIEW OF SYSTEMS General/Constitutional: Denies fever or chills. Denies weakness, weight change. HEENT: Denies change in vision. Denies sore throat. Cardiovascular: Denies chest pain or shortness of breath. Respiratory: Denies cough, wheezing, or hemoptysis. Gastrointestinal: See HPI Genitourinary: Denies dysuria, frequency, or change in urination. Musculoskeletal: Denies joint or muscle swelling or pain. Denies neck or back pain. Skin and breasts: Denies rash or easy bruising. Neurologic: Denies headache, vertigo. Psychiatric: Denies depression or anxiety. Endocrine: Denies increased thirst. Denies abnormal weight change. Hematologic/Lymphatic: Denies anemia, easy bleeding, or history of blood clots. Allergic/Immunologic: Denies hives or skin allergy. Denies latex allergy. Vital Signs Temperature 98.1 F 07/27/19 07:46 Pulse Rate 73 07/27/19 07:46 Respiratory Rate 20 07/27/19 07:46 Blood Pressure 143/75 07/27/19 07:46 O2 Sat by Pulse Oximetry (%) 99 07/27/19 07:46 PHYSICAL EXAM General Appearance: Well-appearing, appropriately dressed. No apparent distress , no intoxication. Respiratory/Chest: Lungs Unlabored resp on RA, No accessory muscle use. Gastrointestinal/Abdominal: No scars, rashes or lesions noted. Abdomen soft, non -distended. Mild Right upper quadrant tenderness without guarding, No Amaral sign or rebound tenderness. No organomegaly, pulsatile mass, hernia, hepatomegaly, splenomegaly. Lymphatic: No adenopathy, tenderness. Lab Results WBC 7.7 K/mm3 (4.0-10.0) 07/27/19 06:10 RBC 4.48 M/mm3 (4.00-5.60) 07/27/19 06:10 Hgb 13.7 GM/dL (11.7-16.9) 07/27/19 06:10 Hct 40.8 % (35.4-49) 07/27/19 06:10 MCV 91.0 fl (80-96) 07/27/19 06:10 MCHC 33.6 g/dl (32.0-35.9) 07/27/19 06:10 RDW 13.3 % (11.9-15.9) 07/27/19 06:10 Plt Count 174 K/MM3 (134-434) 07/27/19 06:10 Sodium 143 mmol/L (136-145) 07/27/19 06:10 Potassium 4.4 mmol/L (3.5-5.1) 07/27/19 06:10 Chloride 108 mmol/L (98-107) H 07/27/19 06:10 Carbon Dioxide 29 mmol/L (21-32) 07/27/19 06:10 Anion Gap 6 MMOL/L (8-16) L 07/27/19 06:10 BUN 8.0 mg/dL (7-18) 07/27/19 06:10 Creatinine 0.8 mg/dL (0.55-1.3) 07/27/19 06:10 Random Glucose 76 mg/dL (74-106) 07/27/19 06:10 Calcium 9.1 mg/dL (8.5-10.1) 07/27/19 06:10 Blood Type O POSITIVE 07/27/19 06:10 Antibody Screen Negative 07/26/19 23:50 Ultrasound ABD 07/26/19: Gallbladder sludge with questionable stones. Mild thickening of the gallbladder wall with ingestion of the adenomyomatosis and trace pericholecystic free fluid. Findings are suspicious for acute cholecystitis. ABD CT 05/11/19: Calculi seen within the gallbladder Problem List - Problems (1) Epigastric pain Assessment/Plan: Patient currently stable. 1) NPO plan lap cholecystectomy with Dr Venegas today 2) IV ABX 3) IVF 4) Pain meds Evaluation and plan discussed with Dr Venegas Code(s): R10.13 - EPIGASTRIC PAIN
[2019-07-27] MEDS ORDERED: HEPARIN NA (PORCINE) 5,000 UNITS/ML 1ML VIAL ONE (08:38)
[2019-07-27] MEDS ORDERED: FAMOTIDINE 20 MG/50 ML IVPB 20 MG/50 ML MG IVPB ONE (08:38)
[2019-07-27] MEDS ORDERED: PANTOPRAZOLE SODIUM 40 MG/100 ML BAG IVPB ONE (08:38)
--- NOTE | 2019-07-27 09:16 | PN ---
Progress Note (short form) - Note Progress Note: Vital Signs Period Temp Pulse Resp BP Sys/Qureshi Pulse Ox Last 24 Hr 98.1 F-98.5 F 53-73 16-20 132-187/75-97 99-100 Abnormal Lab Results 07/26/19 07/26/19 07/26/19 21:13 21:13 23:35 WBC 12.0 H Absolute Neuts (auto) 10.2 H Neutrophils % 85.0 H D Chloride Anion Gap 6 L Random Glucose 115 H Total Bilirubin 0.1 L Urine Ketones Trace H 07/27/19 06:10 WBC Absolute Neuts (auto) Neutrophils % Chloride 108 H Anion Gap 6 L Random Glucose Total Bilirubin Urine Ketones S1S2 RRR lungs cta abd soft non tender +bs no edema 50 yo man without significant past medical history here for acute onset nausea, vomiting and abdominal pain known cholelithiasis, now with acute cholecystitis on us no medical contraindication to cholecystectomy keep npo
[2019-07-27] MEDS ORDERED: RANITIDINE HCL 150 MG/10 ML UNIT-DOSE PO SCH (10:00)
[2019-07-27] MEDS ORDERED: PANTOPRAZOLE SODIUM 40 MG VIAL IVPUSH SCH (10:00)
[2019-07-27] MEDS ORDERED: FAMOTIDINE 40 MG/5 ML ORAL SUSPENSION PO SCH (10:00)
[2019-07-27] MEDS ORDERED: HEPARIN NA (PORCINE) 5,000 UNITS/ML 1ML VIAL SQ SCH (10:00)
--- NOTE | 2019-07-27 10:43 | EKG ---
Test Reason : Blood Pressure : / mmHG Vent. Rate : 060 BPM Atrial Rate : 060 BPM P-R Int : 138 ms QRS Dur : 102 ms QT Int : 408 ms P-R-T Axes : 019 052 032 degrees QTc Int : 408 ms NORMAL SINUS RHYTHM NORMAL ECG WHEN COMPARED WITH ECG OF 11-MAY-2019 06:58, NO SIGNIFICANT CHANGE WAS FOUND Confirmed by MANASA GONZALES MD ([id number]) on 07/27/2019 10:42:45 AM Referred By: Confirmed By:MANASA GONZALES MD
[2019-07-27] MEDS ORDERED: ROCURONIUM BROMIDE 50 MG/5 ML SYRINGE ONE (10:55)
[2019-07-27] MEDS ORDERED: PROPOFOL 20 ML ONE ×2 (10:55→12:21)
[2019-07-27] MEDS ORDERED: BUPIVACAINE HCL/PF 0.5% (5 MG/ML) 30 ML VIAL IJ ONE ×3 (10:56→12:24)
[2019-07-27] MEDS ORDERED: SODIUM CHLORIDE 0.9% P/F 10 ML VIAL IJ ONE (10:56)
[2019-07-27] MEDS ORDERED: KETOROLAC TROMETHAMINE 30 MG/1 ML VIAL ONE (10:56)
[2019-07-27] MEDS ORDERED: ceFAZolin SODIUM 1 GM VIAL ONE (10:56)
[2019-07-27] MEDS ORDERED: DEXAMETHASONE SOD PHOSPHATE 4 MG/1 ML VIAL ONE (10:56)
[2019-07-27] MEDS ORDERED: LIDOCAINE HCL/PF 2% SDV 5ML VIAL ONE (10:56)
[2019-07-27] MEDS ORDERED: BENZOIN TINCTURE SWABSTICK TP ONE (10:56)
[2019-07-27] MEDS ORDERED: MIDAZOLAM HCL 2 MG/2 ML SINGLE DOSE VIAL ONE (11:02)
--- NOTE | 2019-07-27 11:46 | PN ---
Progress Note (short form) - Note Progress Note: Attending Surgeon 53 y/o male w/recurrent biliary colic/acute cholecystitis possible adenomyomatosis of the gallbladder for lap dori possible open; r/b/t/a's d/w the patient and informed consent obtained. Fish Venegas Md FACS
[2019-07-27] MEDS ORDERED: ceFAZolin SODIUM 1 GM VIAL IVPB ONE (11:50)
--- NOTE | 2019-07-27 12:04 | CON.ID ---
Consult Consult Specialty:: infectious diseases Referred by:: Rico Reason for Consultation:: ac choleycystitis - History of Present Illness Chief Complaint: abd pain - Past Medical History Gastrointestinal: Yes: Gastritis Psych: Yes: Addictions (alcohol) - Past Surgical History Past Surgical History: Yes: None - Alcohol/Substance Use Hx Alcohol Use: Yes History of Substance Use: reports: None - Smoking History Smoking history: Current every day smoker Have you smoked in the past 12 months: Yes Aproximately how many cigarettes per day: 20 - Social History ADL: Independent History of Recent Travel: No Home Medications - Allergies Allergies/Adverse Reactions: Allergies Allergy/AdvReac Type Severity Reaction Status Date / Time No Known Allergies Allergy Verified 05/11/19 10:27 - Home Medications Home Medications: Ambulatory Orders NK [No Known Home Medication] 07/27/19 Physical Exam Vital Signs: Vital Signs Temperature 98.0 F 07/27/19 11:00 Pulse Rate 94 H 07/27/19 11:00 Respiratory Rate 18 07/27/19 11:00 Blood Pressure 140/70 07/27/19 11:00 O2 Sat by Pulse Oximetry (%) 99 07/27/19 11:00 Labs: CBC, BMP 07/27/19 06:10 07/27/19 06:10
[2019-07-27] MEDS ORDERED: PIPERACILLIN/TAZOB 3.375 GM 3.375 GM in DEXTROSE 5%-WATER - 50 ML IVPB SCH (12:30)
[2019-07-27] MEDS ORDERED: LABETALOL HCL 5 MG/1 ML (100MG/20 ML VIAL) ONE (12:39)
[2019-07-27] MEDS ORDERED: LACTATED RINGERS SOLUTION 1,000 ML IV SCH ×2 (13:00→14:16)
[2019-07-27] MEDS ORDERED: NEOSTIGMINE METHYLSULFATE 0.5 MG/ML - 10 ML MDV ONE (13:07)
[2019-07-27] MEDS ORDERED: GLYCOPYRROLATE 0.2 MG/1 ML VIAL ONE ×2 (13:07→13:27)
--- NOTE | 2019-07-27 13:25 | OP ---
Operative Note - Note: Operative Date: 07/27/19 Pre-Operative Diagnosis: acute cholecystitis/cholelithiasis Operation: laparoscopic cholecystectomy Findings: acute cholecystitis/cholelithiasis Post-Operative Diagnosis: Same as Pre-op Surgeon: Fish Venegas Heading Maker: Niyah Chang Anesthesiologist/TURBOGENERATOR OPERATOR: Celestina Coulter Anesthesia: General Specimens Removed: gallbladder and contents Estimated Blood Loss (mls): 25
[2019-07-27] MEDS ORDERED: ONDANSETRON 4 MG/2 ML VIAL ONE (14:14)
[2019-07-27] MEDS ORDERED: ACETAMINOPHEN 325 MG TABLET (FP) PO PRN (14:16)
[2019-07-27] MEDS ORDERED: oxyCODONE HCL 5 MG TABLET PO PRN (14:16)
--- NOTE | 2019-07-27 16:25 | SURG ---
Surgery Food And Drug Research Scientist Note Food And Drug Research Scientist: Niyah Chang PA-C (Suzy) Date of Service: 07/27/19 Diagnosis: acute cholecystitis/cholelithiasis Procedure: Operation: laparoscopic cholecystectomy I was present for the entirety of the operative procedure. For further detail, please refer to operative report. Visit type - Case Type Case Type: ED Admission - Emergency Emergency Visit: Yes ED Registration Date: 07/26/19 Care time: The patient presented to the Emergency Department on the above date and was hospitalized for further evaluation of their emergent condition. - New patient This patient is new to me today: Yes Date on this admission: 07/27/19 - Critical Care Critical Care patient: No
[2019-07-27] MEDS ORDERED: PIPERACILLIN/TAZOBACTAM 3.375 GM VIAL IVPB ONE (16:42)
[2019-07-27] MEDS ORDERED: DEXTROSE 5%-WATER - 50 ML IVPB ONE (16:43)
[2019-07-27] MEDS: PIPERACILLIN/TAZOB 3.375 GM 3.375 GM in DEXTROSE 5%-WATER - 50 ML IVPB SCH (17:01)
[2019-07-27] MEDS ORDERED: PT OWN MED DRAWER 7, Y5N ONE (20:56)
[2019-07-27] MEDS: HEPARIN NA (PORCINE) 5,000 UNITS/ML 1ML VIAL SQ SCH (21:28)
[2019-07-27] MEDS: FAMOTIDINE 40 MG/5 ML ORAL SUSPENSION PO SCH (21:28)
[2019-07-28] MEDS ORDERED: DEXTROSE 5%-WATER - 50 ML IVPB ONE ×2 (01:13→08:28)
[2019-07-28] MEDS ORDERED: PIPERACILLIN/TAZOBACTAM 3.375 GM VIAL IVPB ONE ×2 (01:13→08:28)
[2019-07-28] MEDS: PIPERACILLIN/TAZOB 3.375 GM 3.375 GM in DEXTROSE 5%-WATER - 50 ML IVPB SCH ×2 (01:30→10:07)
--- NOTE | 2019-07-28 09:12 | PN ---
Progress Note (short form) - Note Progress Note: Vital Signs Period Temp Pulse Resp BP Sys/Qureshi Pulse Ox Last 24 Hr 97.4 F-98.4 F 62-94 10-19 112-149/50-87 96-100 S1S2 RRR lungs cta abd soft non tender +bs no edema 50 yo man POD#1 lap.cholecystectomy advance diet dc fluids check labs doing very well dc planning this afternoon if ok with surgery
[2019-07-28 09:41] LABS: BASO % 0.3 % (0-2.0); EOS % 0.1 % (0-4.5); HEMATOCRIT 36.9 % (35.4-49); HEMOGLOBIN 12.2 GM/dL (11.7-16.9); LYMPH % 12.3 % (8-40); MCH 30.5 pg (25.7-33.7); MCHC 33.1 g/dl (32.0-35.9); MEAN CELL VOLUME 92.3 fl (80-96); MEAN PLT VOLUME 10.1 fl (7.5-11.1); MONO % 5.8 % (3.8-10.2); NEUT % 81.5 % (42.8-82.8); PLATELET COUNT 164 K/MM3 (134-434); RDW 13.5 % (11.9-15.9); WHITE BLOOD COUNT 10.9 K/mm3 (4.0-10.0)
--- NOTE | 2019-07-28 09:59 | PN ---
Progress Note, Physician History of Present Illness: stable doing well bad bloated - Current Medication List Current Medications: Active Medications Acetaminophen (Tylenol -) 650 mg PO Q4H PRN PRN Reason: PAIN 1-3 Famotidine (Pepcid) 20 mg PO BID [facility] [place] Last Admin: 07/27/19 21:28 Dose: 20 mg Fentanyl (Sublimaze Injection -) 50 mcg IVPUSH [id number] PRN PRN Reason: PAIN-PACU ORDER X 4 DOSES ONLY Heparin Sodium (Porcine) (Heparin -) 5,000 unit SQ BID [facility] [place] Last Admin: 07/27/19 21:28 Dose: 5,000 unit Piperacillin Sod/Tazobactam (Sod 3.375 gm/ Dextrose) 50 mls @ 100 mls/hr IVPB Q8H-IV YANA; Protocol Last Admin: 07/28/19 01:30 Dose: 100 mls/hr Ondansetron HCl (Zofran Injection) 4 mg IVPUSH Q8H PRN PRN Reason: NAUSEA Last Admin: 07/27/19 14:15 Dose: 4 mg Oxycodone HCl (Roxicodone -) 5 mg PO Q6H PRN PRN Reason: PAIN LEVEL 7-10 Pantoprazole Sodium (Protonix Iv) 40 mg IVPUSH DAILY [facility] [place] - Objective Vital Signs: Vital Signs Temperature 98.1 F 07/28/19 09:34 Pulse Rate 71 07/28/19 09:34 Respiratory Rate 18 07/28/19 09:34 Blood Pressure 135/66 07/28/19 09:34 O2 Sat by Pulse Oximetry (%) 98 07/28/19 09:00 Constitutional: Yes: No Distress, Calm Cardiovascular: Yes: Regular Rate and Rhythm Respiratory: Yes: Regular, CTA Bilaterally Gastrointestinal: Yes: Other (bloated) Musculoskeletal: Yes: WNL Extremities: Yes: WNL Wound/Incision: Yes: Dressing Dry and Intact Neurological: Yes: Alert, Oriented Psychiatric: Yes: Alert, Oriented Labs: CBC, BMP 07/28/19 09:05 Assessment/Plan Problem List - Problems (1) Acute cholecystitis Code(s): K81.0 - ACUTE CHOLECYSTITIS (2) History of ETOH abuse Code(s): F10.11 - ALCOHOL ABUSE, IN REMISSION (3) Gastritis Code(s): K29.70 - GASTRITIS, UNSPECIFIED, WITHOUT BLEEDING plan can stop abx rest as per the team
[2019-07-28] MEDS ORDERED: PANTOPRAZOLE SODIUM 40 MG VIAL IVPUSH SCH (10:00)
[2019-07-28] MEDS: HEPARIN NA (PORCINE) 5,000 UNITS/ML 1ML VIAL SQ SCH (10:12)
[2019-07-28 10:19] LABS: ALBUMIN 3.1 g/dl (3.4-5.0); BILIRUBIN,TOTAL 0.4 mg/dL (0.2-1); BLOOD UREA NITROGEN 8.7 mg/dL (7-18); CALCIUM 8.5 mg/dL (8.5-10.1); CREATININE 1.2 mg/dL (0.55-1.3); POTASSIUM 3.7 mmol/L (3.5-5.1); TOT PROT 5.9 g/dl (6.4-8.2)
[2019-07-28] MEDS: FAMOTIDINE 40 MG/5 ML ORAL SUSPENSION PO SCH (10:27)
--- NOTE | 2019-07-28 11:09 | PN ---
Progress Note (short form) - Note Progress Note: SURGERY 53yo M s/p lap dori POD 1, pt seen and examined at bedside. Pt states that he feels well and is tolerating PO and urinating well. Pt denies fever, chills, n/ v. Last Vital Signs Temp Pulse Resp BP Pulse Ox 98.1 F 71 18 135/66 98 07/28/19 09:34 07/28/19 09:34 07/28/19 09:34 07/28/19 09:34 07/28/19 09:00 CBC, BMP 07/28/19 09:05 07/28/19 09:05 PE: Gen: A&O X3 Resp: breathing comfortably Abd: soft, nontender, mild distension, incisions are clean with no erythema or discharge. Ext: no edema Problem List - Problems (1) Acute cholecystitis Assessment/Plan: Plan -pt appears to be doing well, pt is cleared from surgical standpoint for discharge. -pt should follow up with Dr. Venegas in the office next week. Pt discussed with Dr. Venegas who agrees with plan Code(s): K81.0 - ACUTE CHOLECYSTITIS
--- NOTE | 2019-07-28 13:26 | OP ---
DATE OF OPERATION: 07/27/2019 PREOPERATIVE DIAGNOSIS: Acute cholecystitis and cholelithiasis. POSTOPERATIVE DIAGNOSIS: Acute cholecystitis and cholelithiasis. PROCEDURE: Laparoscopic cholecystectomy. SURGEON: Fish Venegas MD DESIGN AGENT: Niyah Chang PA-C ANESTHESIA: General. OPERATIVE FINDINGS: There was acute cholecystitis and cholelithiasis. The rest of the findings were unremarkable. DESCRIPTION OF PROCEDURE: The patient was placed on the operating room table in supine position. After the induction of general anesthesia, the patient's abdomen was prepped with ChloraPrep and draped in sterile fashion. Time-out was taken and then pneumoperitoneum established above the umbilicus using a Veress needle. Once 15 mm of intra-abdominal pressure was obtained, a 5-mm port was placed at the umbilicus. Additional lateral 5-mm ports and a subxiphoid 12-mm port were placed and laparoscopy carried out, and the previously noted findings were observed. The gallbladder was placed on cephalad and lateral traction, and dissection was begun at the neck of the gallbladder where the peritoneum was opened medially and laterally using blunt and sharp dissection and electrocautery. Dissection continued in the triangle of Calot where the cystic duct was identified coursing from the neck of the gallbladder distally to the common bile duct. It was dissected proximally and distally for length. Similarly, the artery was similarly identified and dissected. A critical view of safety was taken, and then the cystic duct divided proximally and distally using Endo Jm after it was clipped twice proximally and distally with large hemoclips. The artery was similarly clipped and divided. Hemostasis was checked for and noted to be good and then the gallbladder was removed from the liver bed in a retrograde fashion using electrocautery. Prior to removal from the edge of the liver, hemostasis was again verified and then the gallbladder removed from the edge of the liver, placed in an EndoCatch, and brought out through the subxiphoid port. Pneumoperitoneum was reestablished, hemostasis verified again, and then the 5-mm lateral and subxiphoid ports were removed under laparoscopic vision without evidence of bleeding from the port sites. The umbilical port was removed and the pneumoperitoneum evacuated. All port sites were infiltrated with 0.5% Marcaine and the skin edges closed with 4-0 Biosyn in a subcuticular and continuous fashion. Steri-Strips and Band-Aid dressings were placed and the procedure terminated at this point and the patient aroused from general anesthesia and transferred to the post anesthesia care unit in stable condition, awake and alert. ESTIMATED BLOOD LOSS: 10 mL. REPLACEMENTS: Crystalloid. DRAINS: None. SPECIMENS: Gallbladder and contents to Pathology. I, Fish Venegas, was physically present in the operating room from the time the patient was placed on the operating room table until he was transferred to the post anesthesia care unit in my company. MD DEBORAH Bee/[id number] MTDD
[2019-07-28 13:27] VITALS: BP 132/70; PULSE 74; TEMP 98.3
--- NOTE | 2019-07-28 16:15 | DS ---
Physical Examination Vital Signs: Vital Signs Temperature 98.3 F 07/28/19 13:20 Pulse Rate 74 07/28/19 13:20 Respiratory Rate 18 07/28/19 13:20 Blood Pressure 132/70 07/28/19 13:20 O2 Sat by Pulse Oximetry (%) 98 07/28/19 09:00 Constitutional: Yes: Well Nourished, Calm Eyes: Yes: EOM Intact HENT: Yes: Normocephalic Neck: Yes: Trachea Midline Cardiovascular: Yes: Regular Rate and Rhythm Respiratory: Yes: CTA Bilaterally Gastrointestinal: Yes: Normal Bowel Sounds, Soft Peripheral Pulses WNL: Yes Wound/Incision: Yes: Clean/Dry Psychiatric: Yes: WNL Labs: CBC, BMP 07/28/19 09:05 07/28/19 09:05 Discharge Summary Problems reviewed: Yes Reason For Visit: ACUTE CHOLECYSTITIS Current Active Problems Acute cholecystitis (Acute) History of ETOH abuse (Acute) Procedures: Principal: Laparoscopic cholecystectomy 07.27.19 Hospital Course: admitted for ruq pain, vomiting, us showed acute cholecystitis, underwent uneventful Laparoscopic cholecystectomy on 07.27.19. Eating well, no pain, no fever, stable to tx home with outpt f/up. Condition: Fair - Instructions Diet, Activity, Other Instructions: Dr. Venegas Discharge Instructions Dear CANDY EAGLE, Post Operative Instructions Physical activity Resume your normal everyday activity as tolerated no heavy lifting or exercise until seen by your surgeon. You may walk unlimited amounts of and climb stairs. You may resume driving the car when you feel safe and comfortable behind the wheel. Wound care If you have a bandage, leave it on, and keep dry for 48 - 72 hours. After that time discard the outer bandage. If there are tapes on the skin under the outer bandage, leave them in place. They will peel off in the next 7 to 10 days. Do Not peel them off. You may shower 2 days after surgery. If there are tapes present on the skin, they can get wet. Diet There are no dietary restrictions. Eat healthy, high-fiber foods. Drink 6 to 8 glasses of liquid each day. This will assist in keeping your bowels are regular. Pain management You may take Tylenol or acetaminophen or Ibuprofen 600 mg every 8 hours (for example, Motrin, Advil etc.) Call Dr. Venegas for any of the following: Severe pain not relieved by medication Fever of 101 or higher Excessive bleeding or drainage on dressing Inability to urinate Call the office at [phone] for a post operative appointment in 7 - 10 days. Disposition: HOME - Home Medications Comprehensive Discharge Medication List: Ambulatory Orders NK [No Known Home Medication] 07/27/19
--- NOTE | 2019-07-31 16:18 | PATH ---
Surgical Pathology Report Patient Name: CANYD EAGLE [facility]. Rec. #: [id number] /Age/Gender: 1965 (Age: 53) / M Account: [id number] Location: [address] [place] [address] Taken: 07/27/2019 Received: 07/27/2019 Reported: 07/31/2019 Physicians: MD Maura Jaquez M.D. Specimen(s) Received GALLBLADDER Clinical History Acute cholecystitis Final Diagnosis GALLBLADDER, LAPAROSCOPIC CHOLECYSTECTOMY: ACUTE AND CHRONIC CHOLECYSTITIS WITH CHOLELITHIASIS. ONE BENIGN PERIDUCTAL LYMPH NODE (0/1). Electronically Signed Tameka Hitchcock M.D. Gross Description Received in formalin, labeled "gallbladder," is a 7.3 x 2.5 x 2.5 cm. gallbladder with a 0.2 cm. in length portion of cystic duct attached. There is a 1.0 cm in greatest dimension wolf-brown periductal lymph node present. The outer surface is wolf-pink and varies from smooth to shaggy. The lumen contains green, sludge-like bile as well as two yellow, irregular choleliths measuring 0.1 and 0.3 cm in greatest dimension. The mucosa is wolf-green and focally eroded. The wall of the gallbladder is focally edematous and measures up to 0.7 cm. in thickness. Box Order Person sections are submitted in one cassette. 07/28/2019 [facility]07/28/2019
== END 2019-07-28 17:51 | disposition home or self-care (01) | DRG 263 ==
LOC: JER 19:19 → JERBED 23:46 → J6S 07-27 15:56
PROVIDERS: ADMIT Internal Medicine; ATTEND Internal Medicine
PROC: 0FT44ZZ Resection of Gallbladder, Percutaneous Endoscopic Approach (ICD-10-PCS; principal; 2019-07-28)
DX: K80.00 Calculus of gallbladder with acute cholecystitis without obstruction (principal); K29.70 Gastritis, unspecified, without bleeding; R11.2 Nausea with vomiting, unspecified; R10.13 Epigastric pain; Z87.11 Personal history of peptic ulcer disease; D13.5 Benign neoplasm of extrahepatic bile ducts
CPT/HCPCS: 36415; 71046-TC-FY; 76705-TC; 80048; 80053; 81003; 83690; 83735; 85025; 85027; 86850; 86900; 86901; 87040; 88304-TC; 93005; 93010; 94760; 99285-25; J1644; J7030

== ENCOUNTER 2023-08-29 04:11 | Emergency (ER) | payer OTHER ==
[2023-08-29] MEDS ORDERED: LIDOCAINE 5% TOPICAL PATCH TP ONE (04:14)
[2023-08-29 04:22] VITALS: BMI 28.1
[2023-08-29] MEDS ORDERED: LIDOCAINE 4% PATCH TP ONE (04:24)
[2023-08-29] MEDS ORDERED: CYCLOBENZAPRINE HCL 10 MG TABLET (FP) PO ONE (05:43)
[2023-08-29] MEDS ORDERED: CYCLOBENZAPRINE HCL 10 MG TABLET (FP) ONE (05:45)
[2023-08-29 08:05] VITALS: BP 160/78; PULSE 80; RESP 18; TEMP 98.7
[2023-08-29] MEDS ORDERED: LIDOCAINE PATCH REMOVAL MC ONE (22:00)
== END 2023-08-29 08:06 | disposition home or self-care (01) ==
LOC: JER 04:11
DX: M54.50 Low back pain, unspecified (principal)
CPT/HCPCS: 72100-TC-FY; 72170-TC-FY; 99283-25